=== PATIENT | female | born 1970 | race Caucasian/White ===

== ENCOUNTER 2016-08-10 10:56 | Emergency (ER) | payer OTHER ==
[~2016-08-10] VITALS: Ht 152.4 cm; Wt 104.0 kg
[~2016-08-10 10:56] MED LIST: ADVIL,NUPRIN,M200 MG PO; ATIVAN0.5 MG PO; Anusol HC,Anucort-HC PR; CLARITIN10 MG PO; EFFEXOR XR150 MG PO; FLEXERIL10 MG PO; Flagyl PO; LIDODERM 5% P1 PATCH TD; LUNESTA3 MG PO; MOTRIN800 MG PO; NOHOMEMEDS; PREDNISONE10 MG PO; Percocet 5/325,Endoc PO; TYLENOL PM EX-1 EACH PO; TYLENOL PM1 CAPLET PO; VICODIN 5-3001 EACH PO; WELLBUTRIN XL300 MG PO
[2016-08-10 11:25] LABS: HEMATOCRIT 41.2 % (36.0-46.0); MCH 28.1 PG (29.0-34.0); MCV 85.1 FL (83-99); MEAN PLAT.VOLUME 10.2 uM^3 (9.5-12.4); PLATELET COUNT 240 K/uL (156-360); RBC DIS.WIDTH-CV 15.3 % (11.8-14.6); RBC DIS.WIDTH-SD 47.7 % (39-53); RED BLOOD COUNT 4.84 M/uL (3.80-5.20); WHITE BLOOD COUNT 8.4 K/uL (4.1-10.2)
[2016-08-10 11:34] LABS: CHLORIDE 109 mEq/L (99-109); POTASSIUM 3.9 mEq/L (3.7-5.4); SODIUM 140 mEq/L (136-147)
[2016-08-10 11:36] LABS: GLUCOSE 108 mg/dL (70-99)
[2016-08-10 11:37] LABS: ANION GAP 8 MEQ/L (2-14)
[2016-08-10 11:40] LABS: GFR ESTIMATE (CALCULATED) > 59 mL/min/; UREA NITROGEN (BUN) 9 mg/dL (9-23)
[2016-08-10 11:45] LABS: TROP-I INTERPRETATION NEGATIVE; TROPONIN-I < 0.01 ng/mL (0.0-0.30)
[2016-08-10 13:29] LABS: D-DIMER ELISA 0.54 mg/L FEU (< 0.57)
[2016-08-10 13:39] LABS: MAGNESIUM 2.3 mg/dL (1.3-2.7)
[2016-08-10 14:53] LABS: TROP-I INTERPRETATION NEGATIVE; TROPONIN-I < 0.01 ng/mL (0.0-0.30)
[2016-08-10] MEDS ORDERED: VENTOLIN HFA18 GM IH (14:55)
[2016-08-10 15:09] VITALS: BP 119/90
== END 2016-08-10 15:25 | disposition home or self-care (01) ==
LOC: EME 10:56
PROVIDERS: Emergency Medicine; Physician Assistant
DX: R07.89 Other chest pain (principal); R06.09 Other forms of dyspnea; J45.909 Unspecified asthma, uncomplicated; F32.9 Major depressive disorder, single episode, unspecified; Z87.442 Personal history of urinary calculi
CPT/HCPCS: 71020; 80048; 83735; 83880; 84443; 84484; 85027; 85379; 93005; 99281; 99284

== ENCOUNTER 2016-08-25 08:41 | Emergency (ER) | payer OTHER ==
[~2016-08-25] VITALS: Ht 152.4 cm; Wt 108.8 kg
[~2016-08-25 08:41] MED LIST changes: +VENTOLIN HFA18 GM IH
[2016-08-25 10:24] LABS: HEMATOCRIT 40.7 % (36.0-46.0); MCHC 32.4 G/DL (30.0-36.0); MCV 86.2 FL (83-99); MEAN PLAT.VOLUME 11.6 uM^3 (9.5-12.4); PLATELET COUNT 180 K/uL (156-360); RBC DIS.WIDTH-CV 14.6 % (11.8-14.6); RBC DIS.WIDTH-SD 46.7 % (39-53); RED BLOOD COUNT 4.72 M/uL (3.80-5.20); WHITE BLOOD COUNT 6.5 K/uL (4.1-10.2)
[2016-08-25 10:34] LABS: CHLORIDE 107 mEq/L (99-109); POTASSIUM 4.2 mEq/L (3.7-5.4); SODIUM 140 mEq/L (136-147)
[2016-08-25 10:36] LABS: GLUCOSE 99 mg/dL (70-99)
[2016-08-25 10:37] LABS: ANION GAP 9 MEQ/L (2-14)
[2016-08-25 10:40] LABS: GFR ESTIMATE (CALCULATED) > 59 mL/min/; UREA NITROGEN (BUN) 9 mg/dL (9-23)
[2016-08-25 10:45] LABS: TROP-I INTERPRETATION NEGATIVE; TROPONIN-I < 0.01 ng/mL (0.0-0.30)
[2016-08-25 13:18] VITALS: BP 121/70
== END 2016-08-25 13:20 | disposition home or self-care (01) ==
LOC: EME 08:41
DX: R06.00 Dyspnea, unspecified (principal); M79.89 Other specified soft tissue disorders; R07.9 Chest pain, unspecified
CPT/HCPCS: 71020; 80048; 84484; 85027; 93005; 99281; 99284

== ENCOUNTER 2016-08-31 12:44 | Inpatient (IN) | payer OTHER ==
[~2016-08-31] VITALS: Ht 152.4 cm; Wt 103.3 kg
[2016-08-31 13:27] LABS: HEMATOCRIT 41.5 % (36.0-46.0); MCH 28.2 PG (29.0-34.0); MCHC 32.5 G/DL (30.0-36.0); MCV 86.8 FL (83-99); MEAN PLAT.VOLUME 10.2 uM^3 (9.5-12.4); PLATELET COUNT 193 K/uL (156-360); RBC DIS.WIDTH-CV 14.3 % (11.8-14.6); RBC DIS.WIDTH-SD 45.8 % (39-53); RED BLOOD COUNT 4.78 M/uL (3.80-5.20); WHITE BLOOD COUNT 7.6 K/uL (4.1-10.2)
[2016-08-31 14:29] LABS: CHLORIDE 106 mEq/L (99-109); POTASSIUM 4.2 mEq/L (3.7-5.4); SODIUM 140 mEq/L (136-147)
[2016-08-31 14:30] LABS: GLUCOSE 85 mg/dL (70-99)
[2016-08-31 14:32] LABS: ANION GAP 10 MEQ/L (2-14)
[2016-08-31 14:34] LABS: GFR ESTIMATE (CALCULATED) > 59 mL/min/
[2016-08-31 14:35] LABS: UREA NITROGEN (BUN) 9 mg/dL (9-23)
[2016-08-31] MEDS ORDERED: VENTOLIN HFA18 GM IH (15:43)
[2016-08-31] MEDS ORDERED: LIPITOR10 MG PO (15:44)
[2016-08-31] MEDS ORDERED: VOLTAREN75 MG PO (15:44)
[2016-08-31 15:45] LABS: ADD MIUA? YES; BILIRUBIN NEGATIVE; BLOOD NEGATIVE; COLOR YELLOW ((YELLOW)); GLUCOSE (STRIP) NEGATIVE; KETONES 5; LEUKOCYTES NEGATIVE; NITRITE NEGATIVE; PROTEIN (STRIP) NEGATIVE; SPECIFIC GRAVITY 1.018 (1.000-1.030); UROBILINOGEN 0.2 MG/DL (0.2-1.0)
[2016-08-31] MEDS ORDERED: WELLBUTRIN SR100 MG PO (15:45)
[2016-08-31] MEDS ORDERED: SERTRALINE HCL100 MG PO (15:45)
[2016-08-31] MEDS ORDERED: DESYREL100 MG PO (15:46)
[2016-08-31 15:55] LABS: PHENCYCLIDINE NEGATIVE (25 ng/mL); THC CANNABINOIDS NEGATIVE (50 ng/mL)
[2016-08-31 15:56] LABS: AMPHETAMINE NEGATIVE (500 ng/mL); BARBITURATES NEGATIVE (200 ng/mL); BENZODIAZEPINES NEGATIVE (150 ng/mL); COCAINE NEGATIVE (150 ng/mL); INTERNAL CONTROLS VALID? YES; METHADONE NEGATIVE (200 ng/mL); METHAMPHETAMINE NEGATIVE (500 ng/mL); OPIATES (MORPHINE) NEGATIVE (100 ng/mL); OXYCODONE NEGATIVE (100 ng/mL); PROPOXYPHENE NEGATIVE (300 ng/mL); TRICYCLIC ANTIDEPRESSANTS NEGATIVE (300 ng/mL)
[2016-08-31 16:19] LABS: BACTERIA RARE /HPF; EPITHELIAL CELLS 1+ /HPF; MUCUS TRACE /LPF; RED BLOOD CELLS 0-5 /HPF (0-5); UCUL ADDED? NO; WHITE BLOOD CELLS 0-5 /HPF (0-5)
[2016-08-31 17:08] VITALS: BP 175/96
[2016-09-01 07:23] VITALS: BP 144/95
[2016-09-01 16:16] VITALS: BP 129/77
[2016-09-02 07:29] VITALS: BP 110/68
[2016-09-02 15:28] VITALS: BP 126/64
[2016-09-03 07:36] VITALS: BP 108/61
[2016-09-03 15:25] VITALS: BP 151/83
[2016-09-04 07:53] VITALS: BP 118/72
[2016-09-04 15:55] VITALS: BP 116/61
[2016-09-05 07:16] VITALS: BP 114/55
[2016-09-05 15:44] VITALS: BP 128/69
[2016-09-06 07:27] VITALS: BP 113/53
[2016-09-06 15:08] VITALS: BP 122/62
[2016-09-07 07:25] VITALS: BP 109/61
[2016-09-07 15:37] VITALS: BP 130/71
[2016-09-08 07:22] VITALS: BP 117/78
[2016-09-08 15:47] VITALS: BP 156/67
[2016-09-08 18:38] VITALS: BP 154/77
[2016-09-09 07:46] VITALS: BP 118/69
[2016-09-09] MEDS ORDERED: SERTRALINE HCL100 MG PO (09:17)
[2016-09-09] MEDS ORDERED: CLONAZEPAM0.5 MG PO (09:17)
[2016-09-09] MEDS ORDERED: PRAZOSIN HCL1 MG PO (09:17)
[2016-09-09] MEDS ORDERED: BUPROPION HCL150 M2 PO (09:17)
[2016-09-09] MEDS ORDERED: ARIPIPRAZOLE2 MG PO (09:17)
== END 2016-09-09 10:39 | disposition home or self-care (01) | DRG 885 ==
LOC: EME 12:44 → EDOF 15:58 → 1WEST 15:58
DX: F33.2 Major depressive disorder, recurrent severe without psychotic features (principal); F41.1 Generalized anxiety disorder; R45.851 Suicidal ideations; G47.30 Sleep apnea, unspecified; E66.01 Morbid (severe) obesity due to excess calories; Z68.41 Body mass index [BMI] 40.0-44.9, adult; Z87.442 Personal history of urinary calculi; J45.909 Unspecified asthma, uncomplicated; G47.00 Insomnia, unspecified
CPT/HCPCS: 80048; 81003; 85027; 90839; 97150 GO; 97530 GO; 99202; 99281; 99285

== ENCOUNTER 2017-05-11 12:45 | Inpatient (IN) | payer OTHER ==
[~2017-05-11] VITALS: Ht 152.4 cm; Wt 105.3 kg
[~2017-05-11 12:45] MED LIST changes: +ARIPIPRAZOLE2 MG PO; +BUPROPION HCL150 M2 PO; +CLONAZEPAM0.5 MG PO; +DESYREL100 MG PO; +LIPITOR10 MG PO; +PRAZOSIN HCL1 MG PO; +SERTRALINE HCL100 MG PO; +VOLTAREN75 MG PO; +WELLBUTRIN SR100 MG PO
[2017-05-11] MEDS ORDERED: PRAZOSIN HCL2 MG PO (13:23)
[2017-05-11] MEDS ORDERED: WELLBUTRIN XL150 MG PO (13:26)
[2017-05-11] MEDS ORDERED: WELLBUTRIN XL300 MG PO (13:26)
[2017-05-11] MEDS ORDERED: VIIBRYD40 MG PO (13:27)
[2017-05-11] MEDS ORDERED: ATIVAN0.5 MG PO ×2 (13:27→17:42)
[2017-05-11] MEDS ORDERED: TOPIRAMATE100 MG PO (13:28)
[2017-05-11 15:27] LABS: HEMATOCRIT 42.3 % (36.0-46.0); HEMOGLOBIN 14.3 G/DL (11.9-15.5); MCH 29.4 PG (29.0-34.0); MCHC 33.8 G/DL (30.0-36.0); PLATELET COUNT 226 K/uL (156-360); RBC DIS.WIDTH-CV 14.6 % (11.8-14.6); RBC DIS.WIDTH-SD 46.8 % (39-53); RED BLOOD COUNT 4.86 M/uL (3.80-5.20); WHITE BLOOD COUNT 8.7 K/uL (4.1-10.2)
[2017-05-11 15:36] LABS: ALBUMIN 4.2 g/dL (3.2-4.8); CHLORIDE 110 mEq/L (99-109); POTASSIUM 4.2 mEq/L (3.7-5.4); SODIUM 138 mEq/L (136-147)
[2017-05-11 15:37] LABS: APPEARANCE CLOUDY ((CLEAR)); BILIRUBIN NEGATIVE; BLOOD NEGATIVE; COLOR YELLOW ((YELLOW)); GLUCOSE (STRIP) NEGATIVE; KETONES NEGATIVE; LEUKOCYTES NEGATIVE; NITRITE NEGATIVE; PROTEIN (STRIP) NEGATIVE; SPECIFIC GRAVITY 1.016 (1.000-1.030); UROBILINOGEN 0.2 MG/DL (0.2-1.0)
[2017-05-11 15:38] LABS: GLUCOSE 96 mg/dL (70-99)
[2017-05-11 15:40] LABS: TOTAL BILIRUBIN 0.3 mg/dL (0.0-1.0)
[2017-05-11 15:41] LABS: SERUM ETHYL ALCOHOL < 10 mg/dL
[2017-05-11 15:42] LABS: ALKALINE PHOSPHATASE 76 IU/L (3-129); GFR ESTIMATE (CALCULATED) > 59 mL/min/
[2017-05-11 15:43] LABS: UREA NITROGEN (BUN) 8 mg/dL (9-23)
[2017-05-11 15:44] LABS: AST (GOT) 13 IU/L (2-34)
[2017-05-11 15:45] LABS: ALT (GPT) 15 IU/L (3-49)
[2017-05-11 15:51] LABS: QUANTITATIVE HCG < 4.0 MIU/ML
[2017-05-11 15:51] LABS: BACTERIA RARE /HPF; CALCIUM OXALATE CRYSTALS 2+ /HPF; EPITHELIAL CELLS 2+ /HPF; MUCUS TRACE /LPF; WHITE BLOOD CELLS 0-5 /HPF (0-5)
[2017-05-11 16:02] LABS: AMPHETAMINE NEGATIVE (500 ng/mL); BARBITURATES NEGATIVE (200 ng/mL); BENZODIAZEPINES NEGATIVE (150 ng/mL); BUPRENORPHINE NEGATIVE (10 ng/mL); COCAINE NEGATIVE (150 ng/mL); METHADONE NEGATIVE (200 ng/mL); METHAMPHETAMINE NEGATIVE (500 ng/mL); OPIATES (MORPHINE) NEGATIVE (100 ng/mL); OXYCODONE NEGATIVE (100 ng/mL); PHENCYCLIDINE NEGATIVE (25 ng/mL); PROPOXYPHENE NEGATIVE (300 ng/mL); THC CANNABINOIDS NEGATIVE (50 ng/mL); TRICYCLIC ANTIDEPRESSANTS NEGATIVE (300 ng/mL)
[2017-05-11] MEDS ORDERED: ATIVAN1 MG PO (17:42)
[2017-05-12 08:02] VITALS: BP 110/69
[2017-05-12 15:46] VITALS: BP 126/79
[2017-05-13 07:53] VITALS: BP 94/51
[2017-05-13 15:35] VITALS: BP 96/51
[2017-05-14 07:52] VITALS: BP 98/54
[2017-05-14 15:30] VITALS: BP 103/54
[2017-05-15 07:38] VITALS: BP 104/58
[2017-05-15 15:29] VITALS: BP 142/73
[2017-05-16 08:08] VITALS: BP 104/58
[2017-05-16 16:11] VITALS: BP 96/51
[2017-05-17 07:19] VITALS: BP 106/51
[2017-05-17 15:11] VITALS: BP 112/60
[2017-05-18 07:56] VITALS: BP 93/49
[2017-05-18] MEDS ORDERED: GEODON40 MG PO (09:06)
== END 2017-05-18 10:22 | disposition home or self-care (01) | DRG 885 ==
LOC: EME 12:45 → 1WEST 14:38 → EDOF 14:38 → ENRESERV 16:06 → 1WEST 16:48
PROVIDERS: Emergency Medicine
DX: F33.2 Major depressive disorder, recurrent severe without psychotic features (principal); F41.9 Anxiety disorder, unspecified; G47.00 Insomnia, unspecified; R45.851 Suicidal ideations; E66.01 Morbid (severe) obesity due to excess calories; J45.909 Unspecified asthma, uncomplicated; Z87.442 Personal history of urinary calculi; Z68.42 Body mass index [BMI] 45.0-49.9, adult
CPT/HCPCS: 80053; 81003; 84702; 85027; 90839; 97150 GO; 97165 GO; 99202; 99281; 99285; G0480; Q0169; Q0177

== ENCOUNTER 2017-09-09 11:12 | Inpatient (IN) | payer OTHER ==
[~2017-09-09] VITALS: Ht 152.4 cm; Wt 103.6 kg
[~2017-09-09 11:12] MED LIST changes: +ATIVAN1 MG PO; +GEODON40 MG PO; +PRAZOSIN HCL2 MG PO; +TOPIRAMATE100 MG PO; +VIIBRYD40 MG PO; +WELLBUTRIN XL150 MG PO
[2017-09-09 12:52] LABS: HEMATOCRIT 39.6 % (36.0-46.0); HEMOGLOBIN 13.2 G/DL (11.9-15.5); MCH 29.5 PG (29.0-34.0); MCHC 33.3 G/DL (30.0-36.0); MCV 88.4 FL (83-99); PLATELET COUNT 203 K/uL (156-360); RBC DIS.WIDTH-CV 13.5 % (11.8-14.6); RBC DIS.WIDTH-SD 43.8 % (39-53); RED BLOOD COUNT 4.48 M/uL (3.80-5.20)
[2017-09-09 13:05] LABS: CHLORIDE 111 mEq/L (99-109); POTASSIUM 3.7 mEq/L (3.7-5.4); SODIUM 141 mEq/L (136-147)
[2017-09-09 13:07] LABS: GLUCOSE 90 mg/dL (70-99)
[2017-09-09 13:10] LABS: CREATININE 0.8 mg/dL (0.6-1.3); GFR ESTIMATE (CALCULATED) > 59 mL/min/
[2017-09-09 13:11] LABS: UREA NITROGEN (BUN) 11 mg/dL (9-23)
[2017-09-09 13:32] LABS: APPEARANCE CLOUDY ((CLEAR)); BILIRUBIN NEGATIVE; BLOOD NEGATIVE; COLOR YELLOW ((YELLOW)); GLUCOSE (STRIP) NEGATIVE; KETONES NEGATIVE; LEUKOCYTES NEGATIVE; NITRITE NEGATIVE; PROTEIN (STRIP) NEGATIVE; SPECIFIC GRAVITY 1.018 (1.000-1.030)
[2017-09-09 13:46] LABS: AMPHETAMINE NEGATIVE (500 ng/mL); BARBITURATES NEGATIVE (200 ng/mL); BENZODIAZEPINES PRESUMPTIVE POSITIVE (150 ng/mL); BUPRENORPHINE NEGATIVE (10 ng/mL); COCAINE NEGATIVE (150 ng/mL); METHADONE NEGATIVE (200 ng/mL); METHAMPHETAMINE NEGATIVE (500 ng/mL); OPIATES (MORPHINE) NEGATIVE (100 ng/mL); OXYCODONE NEGATIVE (100 ng/mL); PHENCYCLIDINE NEGATIVE (25 ng/mL); PROPOXYPHENE NEGATIVE (300 ng/mL); THC CANNABINOIDS NEGATIVE (50 ng/mL); TRICYCLIC ANTIDEPRESSANTS NEGATIVE (300 ng/mL)
[2017-09-09 13:53] LABS: AMORPHOUS PHOSPHATE CRYSTALS 1+; BACTERIA 1+ /HPF; CALCIUM OXALATE CRYSTALS 1+ /HPF; EPITHELIAL CELLS 1+ /HPF; MUCUS NONE SEEN /LPF; RED BLOOD CELLS 0-5 /HPF (0-5); UCUL ADDED? NO; WHITE BLOOD CELLS 0-5 /HPF (0-5)
[2017-09-09 15:27] LABS: BENZODIAZEPINES, URINE SCREEN Negative (200 ng/mL)
[2017-09-09 17:01] VITALS: BP 134/75
[2017-09-09] MEDS ORDERED: PRISTIQ50 MG PO ×2 (17:23→17:24)
[2017-09-09] MEDS ORDERED: LUNESTA3 MG PO (17:25)
[2017-09-09] MEDS ORDERED: FLUVOXAMINE MAL25 MG PO (17:26)
[2017-09-10 16:09] VITALS: BP 118/76
[2017-09-11 08:48] VITALS: BP 107/55
[2017-09-11 15:58] VITALS: BP 136/85
[2017-09-12 07:40] VITALS: BP 97/53
[2017-09-12 16:27] VITALS: BP 110/66
[2017-09-13 08:00] VITALS: BP 103/55
[2017-09-13 16:11] VITALS: BP 102/55
[2017-09-14 08:07] VITALS: BP 96/51
[2017-09-14 16:17] VITALS: BP 105/62
[2017-09-15 08:23] VITALS: BP 107/56
[2017-09-15 17:00] VITALS: BP 106/57
[2017-09-16 07:46] VITALS: BP 94/51
[2017-09-16] MEDS ORDERED: PRAZOSIN HCL2 MG PO (09:13)
[2017-09-16] MEDS ORDERED: RISPERDAL2 MG PO ×2 (09:14→09:15)
== END 2017-09-16 11:55 | disposition home or self-care (01) | DRG 885 ==
LOC: EME 11:12 → 1WEST 14:44 → EDOF 14:44 → ENRESERV 16:30 → 1WEST 16:30
PROVIDERS: Emergency Medicine
DX: F33.2 Major depressive disorder, recurrent severe without psychotic features (principal); F41.1 Generalized anxiety disorder; G47.00 Insomnia, unspecified; F60.9 Personality disorder, unspecified; R45.851 Suicidal ideations; K21.9 Gastro-esophageal reflux disease without esophagitis; J45.909 Unspecified asthma, uncomplicated; E66.01 Morbid (severe) obesity due to excess calories; Z91.5 Personal history of self-harm; Z68.41 Body mass index [BMI] 40.0-44.9, adult
CPT/HCPCS: 80048; 81003; 84999; 85027; 90837; 94799; 97150 GO; 97165 GO; 99281; 99284